=== PATIENT | female | born 1985 | race African-American/Black ===

== ENCOUNTER 2017-02-17 02:57 | Emergency (ER) | payer SELFPAY ==
[~2017-02-17] VITALS: Ht 172.7 cm; Wt 83.0 kg
[2017-02-17 03:05] VITALS: BP 113/64; PULSE 104; RESP 20; TEMP 98.1; O2SAT 88
[2017-02-17] MEDS ORDERED: SODIUM CHLORIDE 0.9% FLUSH 10 ML FLUSH IVF PRN (03:15)
[2017-02-17] MEDS ORDERED: methylPREDNISolone SOD SUCC 125 MG/2 ML VIAL IV PUSH ONE (03:15)
[2017-02-17 03:20] VITALS: O2SAT 97
[2017-02-17] MEDS: RESP: ALBUTEROL 2.5 MG/IPRATROPIUM 0.5 MG NEB (SCH) INH ×3 (03:21→03:45)
[2017-02-17 03:30] VITALS: O2SAT 96
[2017-02-17 03:52] LABS: CHLORIDE 105 MEQ/L (98-107); SODIUM (NA) 137 MEQ/L (136-145)
[2017-02-17 03:55] LABS: BICARBONATE 24.7 MEQ/L (21.0-32.0); BLOOD UREA NITROGEN 11 MG/DL (7-18); CALCIUM 8.5 MG/DL (8.5-10.1); GLUCOSE,RANDOM 95 MG/DL (74-106)
[2017-02-17 03:59] LABS: CREATININE 0.78 MG/DL (0.50-1.00); GLOMERULAR FILTRATION RATE 86 ML/MIN (>89)
[2017-02-17 04:10] LABS: BASOPHIL % 0.9 % (0.0-2.0); EOSINOPHIL # 0.2 TH/MM3 (0-0.4); EOSINOPHIL % 3.5 % (0.0-4.0); HEMATOCRIT 34.4 % (35.0-46.0); HEMOGLOBIN 10.4 GM/DL (11.6-15.3); LYMPH % 33.1 % (9.0-44.0); LYMPHOCYTE # 1.7 TH/MM3 (1.0-4.8); MEAN CELL VOLUME 63.1 FL (80.0-100.0); MEAN CORPUSCULAR HGB CONC 30.1 % (32.0-36.0); MEAN PLATELET VOLUME 8.1 FL (7.0-11.0); MONO % 5.4 % (0.0-8.0); MONOCYTE # 0.3 TH/MM3 (0-0.9); NEUT % 57.1 % (16.0-70.0); PLATELET COUNT 371 TH/MM3 (150-450); RED BLOOD COUNT 5.45 MIL/MM3 (4.00-5.30); RED CELL DISTRIBUTION WIDTH 18.4 % (11.6-17.2); WHITE BLOOD COUNT 5.2 TH/MM3 (4.0-11.0)
--- NOTE | 2017-02-17 04:18 | RADRPT ---
EXAM DATE/TIME: 02/17/2017 03:22 [place] COMPARISON: No previous studies available for comparison. INDICATIONS : Shortness of breath. MEDICAL HISTORY : Asthma. SURGICAL HISTORY : None. ENCOUNTER: Initial ACUITY: 1 day PAIN SCORE: 0/10 LOCATION: Bilateral chest FINDINGS: PA and lateral views of the chest demonstrate the lungs to be symmetrically aerated without evidence of mass, infiltrate or effusion. The cardiomediastinal contours are unremarkable. Osseous structure s are intact. CONCLUSION: No acute disease. Tom Ace Jr., MD on February 17, 2017 at 4:16 Board Certified Radiologist. This report was verified electronically.
[2017-02-17 04:37] VITALS: BP 100/58
[2017-02-17 04:49] LABS: OVALOCYTES 1+ (NORMAL); TARGET CELLS 1+ (NORMAL)
[2017-02-17 04:50] VITALS: BP 119/67; PULSE 88; RESP 20; TEMP 97.9; O2SAT 99
--- NOTE | 2017-02-17 05:02 | PD ---
HPI Chief Complaint: Respiratory Symptoms Time Seen by Provider: 03:04 Travel History International Travel<30 days: No Contact w/Intl Traveler<30days: No Traveled to known affect area: No History of Present Illness HPI The patient is a 31-year-old female that complains of shortness of breath and cough for the past hour. The patient does have a history of asthma. She denies any fever and she denies any chest pain. She has been on prednisone in the past. She does not have a nebulizer machine at home. [facility] Past Medical History Asthma: Yes Diminished Hearing: No Respiratory: Yes (Asthma ) Immunizations Current: Yes Tetanus Vaccination: > 5 Years Influenza Vaccination: No ?: Not LMP: 01/31/17 Past Surgical History Surgical History: No Previous Surgery Social History Alcohol Use: No Tobacco Use: No Substance Use: No Allergies-Medications (Allergen,Severity, Reaction): Coded Allergies: No Known Allergies (Unverified , 02/17/17) Reported Meds & Prescriptions Reported Meds & Active Scripts Active No Active Prescriptions or Reported Medications Review of Systems Except as stated in HPI: all other systems reviewed are Neg Physical Exam Narrative GENERAL: The patient is alert, oriented 3 in mild to moderate respiratory distress. Her vital signs show heart rate of 104 and oximetry 88% on room air. Vital signs are otherwise normal. SKIN: Focused skin assessment warm/dry. No skin rash is seen. HEAD: Atraumatic. Normocephalic. EYES: Pupils equal and round. No scleral icterus. No injection or drainage. ENT: No nasal bleeding or discharge. Mucous membranes pink and moist. NECK: Trachea midline. No JVD. CARDIOVASCULAR: Regular rate and rhythm. No murmur appreciated. RESPIRATORY: No accessory muscle use. Bilateral wheezes are heard in all lung lorenzo. Breath sounds equal bilaterally. GASTROINTESTINAL: Abdomen soft, non-tender, nondistended. Hepatic and splenic margins not palpable. MUSCULOSKELETAL: No obvious deformities. No clubbing. No cyanosis. No edema. NEUROLOGICAL: Awake and alert. No obvious cranial nerve deficits. Motor grossly within normal limits. Normal speech. PSYCHIATRIC: Appropriate mood and affect; insight and judgment normal. Data Data Last Documented VS Vital Signs Date Time Temp Pulse Resp B/P (MAP) Pulse Ox O2 Delivery O2 Flow Rate FiO2 02/17/17 04:50 97.9 88 20 119/67 (84) 99 02/17/17 04:50 3.00 02/17/17 03:30 Nasal Cannula Orders Orders Complete Blood Count With Diff (02/17/17 03:13) Basic Metabolic Panel (Bmp) (02/17/17 03:13) Arterial Blood Gas (Abg) (02/17/17 03:13) Influenzae A/B Antigen (02/17/17 03:13) Iv Access Insert/Monitor (02/17/17 03:13) Ecg Monitoring (02/17/17 03:13) Oximetry (02/17/17 03:13) Oxygen Administration (02/17/17 03:13) Chest, Pa & Lat (02/17/17 03:13) Sodium Chloride 0.9% Flush (Ns Flush) (02/17/17 03:15) Methylprednisolone So Succ Inj (Solumedr (02/17/17 03:15) Albuterol-Ipratropium Neb (Duoneb Neb) (02/17/17 03:15) Beta Hcg (Quant/Titer) (02/17/17 03:13) Labs Laboratory Tests Test 02/17/17 03:20 02/17/17 03:33 Blood Gas Puncture Site RT RADIAL Blood Gas Patient Temperature 98.6 Blood Gas HCO3 23 mmol/L Blood Gas Base Excess -1.1 mmol/L Blood Gas Oxygen Saturation 88 % Arterial Blood pH 7.40 Arterial Blood Partial Pressure CO2 38 mmHG Arterial Blood Partial Pressure O2 64 mmHG Arterial Blood Oxygen Content 12.6 Vol % Arterial Blood Carboxyhemoglobin 1.5 % Arterial Blood Methemoglobin 1.3 % Blood Gas Hemoglobin 10.2 G/DL Oxygen Delivery Device ROOM AIR Blood Gas Inspired Oxygen 21 % White Blood Count 5.2 TH/MM3 Red Blood Count 5.45 MIL/MM3 Hemoglobin 10.4 GM/DL Hematocrit 34.4 % Mean Corpuscular Volume 63.1 FL Mean Corpuscular Hemoglobin 19.0 PG Mean Corpuscular Hemoglobin Concent 30.1 % Red Cell Distribution Width 18.4 % Platelet Count 371 TH/MM3 Mean Platelet Volume 8.1 FL Neutrophils (%) (Auto) 57.1 % Lymphocytes (%) (Auto) 33.1 % Monocytes (%) (Auto) 5.4 % Eosinophils (%) (Auto) 3.5 % Basophils (%) (Auto) 0.9 % Neutrophils # (Auto) 3.0 TH/MM3 Lymphocytes # (Auto) 1.7 TH/MM3 Monocytes # (Auto) 0.3 TH/MM3 Eosinophils # (Auto) 0.2 TH/MM3 Basophils # (Auto) 0.0 TH/MM3 CBC Comment AUTO DIFF Differential Comment AUTO DIFF CONFIRMED Platelet Estimate NORMAL Platelet Morphology Comment NORMAL Target Cells 1+ Ovalocytes 1+ Blood Urea Nitrogen 11 MG/DL Creatinine 0.78 MG/DL Random Glucose 95 MG/DL Calcium Level 8.5 MG/DL Sodium Level 137 MEQ/L Potassium Level 3.5 MEQ/L Chloride Level 105 MEQ/L Carbon Dioxide Level 24.7 MEQ/L Anion Gap 7 MEQ/L Estimat Glomerular Filtration Rate 86 ML/MIN Human Chorionic Gonadotropin, Quant LESS THAN 1 MIU/ML MDM Medical Decision Making Medical Screen Exam Complete: Yes Emergency Medical Condition: Yes Medical Record Reviewed: Yes Interpretation(s) The CBC shows a hemoglobin of 10.4 and hematocrit of 34.4 but is otherwise unremarkable. The blood gases on room air show pH 7.40, O2 sat 88%, CO2 38 PO2 64. The basic metabolic profile shows a GFR of 86 but is otherwise normal. The chest x-ray shows no acute cardiopulmonary disease. Differential Diagnosis Acute asthma, bronchitis, pneumonia, hypoxemia Narrative Course It is now 0500 and the patient feels much better and has no wheezes are audible in her lungs. Her oximetry on room air is now 97%. The patient wants to go home at this time. She was given a tapered course of prednisone and HFA albuterol HFA. Diagnosis Primary Impression: Acute asthma Additional Instructions: Follow-up with your primary care physician. If you get asthma frequently you may need that nebulizer machine at home. As we discussed, the prednisone is taken one tablet twice daily for 4 days followed by one tablet once daily for 4 days. Use the puffer every 4 hours as needed, 2 puffs. Med/Other Pt SpecificInfo: Prescription(s) given Scripts Prednisone (Prednisone) 50 Mg Tab 50 MG PO BID for X 4 days than daily X 4 days, #12 TAB 0 Refills Prov: King White MD 02/17/17 Albuterol 8.5 GM Inh (Proair Hfa 8.5 GM Inh) 90 Mcg/Act Aer 2 PUFF INH Q4-6H Y for SHORTNESS OF BREATH, #1 INHALER 0 Refills 108 mcg/actuation Prov: King White MD 02/17/17 Disposition: 01 DISCHARGE HOME Condition: Stable King White MD Feb 17, 2017 05:02
[2017-02-17] MEDS ORDERED: PRED50 PO (05:09)
[2017-02-17] MEDS ORDERED: ALBUAER3 INH (05:09)
== END 2017-02-17 05:22 | disposition home or self-care (01) ==
LOC: PHED 02:57
DX: J45.909 Unspecified asthma, uncomplicated (principal); Z87.09 Personal history of other diseases of the respiratory system
CPT/HCPCS: 36600; 71046; 80048; 82805; 84702; 85025; 87804; 94640; 94664; 96374; 99285; J2930